=== PATIENT | male | born 2000 | race Two or more races ===

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

== ENCOUNTER 2024-07-19 18:59 | Emergency (ER) | payer SELFPAY ==
[~2024-07-19] VITALS: Ht 172.7 cm; Wt 79.1 kg
[2024-07-20] VITALS: TEMP 98
[2024-07-20 02:15] VITALS: BP 105/57; O2SAT 100
== END 2024-07-20 04:09 | disposition home or self-care (01) ==
LOC: M ED 18:59
DX: Z00.00 Encounter for general adult medical examination without abnormal findings (principal); T58.91XA Toxic effect of carbon monoxide from unspecified source, accidental (unintentional), initial encounter